=== PATIENT | male | born 1945 | race Caucasian/White ===

== ENCOUNTER → 2017-12-07 08:08 | Outpatient (CLI) | payer MEDICARE, OTHER, SELFPAY ==
--- NOTE | 2017-12-07 | DI.MRI.S_ITS ---
PROCEDURE: MR HEAD/BRAIN WO/W CON INDICATIONS: Atypical Headache with visual symptoms TECHNIQUE: Noncontrast axial T1 spin echo, axial T2 fast spin echo, sagittal and axial FLAIR, coronal T2 fast spin echo, axial gradient echo, axial diffusion and ADC through the brain. After the administration of contrast, axial and coronal T1 spin echo with fat saturation through the brain. COMPARISON: [facility], CT, HEAD WITHOUT CONTRAST, 07/07/2010, 11:08. [facility], CT, SINUS SCREEN WO CONTRAST, 05/21/2013, 9:49. FINDINGS: Image quality: Excellent. CSF spaces: Basal cisterns are patent. No extra-axial fluid collections. Ventricles are normal in size and shape. Brain: No midline shift. No intracranial bleeds or masses. No abnormal intracranial enhancement. There is cerebral volume loss for age. There is periventricular white matter chronic small vessel ischemic change. The brainstem appears normal. Diffusion-weighted images demonstrate no acute ischemic insults. No chronic ischemic insults. Normal intravascular flow voids are present. Skull and face: Calvarial marrow is normal in signal. Orbits appear normal. Sinuses: There is minimal paranasal sinus disease. No abnormal fluid is seen within the mastoid air cells or within the middle ear cavities. IMPRESSION: No masses or abnormal enhancement can be seen. No findings of acute or subacute infarction can be seen. Note is made of age-appropriate brain parenchymal volume loss and chronic small vessel ischemic changes. Dictated by: Devang Angela M.D. on 12/07/2017 at 8:40 Approved by: Devang Angela M.D. on 12/07/2017 at 8:42
== END ==
PROVIDERS: Family Provider Family Medicine Geriatric Medicine; PCP Family Medicine Geriatric Medicine; Visit Provider Family Medicine Geriatric Medicine
DX: R51 Headache (principal); H53.9 Unspecified visual disturbance
CPT/HCPCS: 70553

== ENCOUNTER → 2019-02-21 09:41 | Outpatient (CLI) | payer MEDICARE, OTHER, SELFPAY ==
--- NOTE | 2019-02-21 09:56 | DI.CT.S_ITS ---
PROCEDURE: CT CHEST WO CON INDICATIONS: Hemoptysis TECHNIQUE: Noncontrast 5 mm thick sections acquired from the pulmonary apices to the posterior costophrenic angles. 1 mm lung window, 5 mm thick coronal and sagittal and 7 mm axial MIP reformats were then acquired. For radiation dose reduction, the following was used: automated exposure control, adjustment of mA and/or kV according to patient size. COMPARISON: None. FINDINGS: Image quality: Excellent. Lungs and pleura: No acute consolidation. Diffuse bilateral upper lobe scarring and atelectasis. 2.1 x 1.6 cm anterior right upper lobe nodule on image 86 series 3. Diffuse central airway thickening. No pleural effusion or pneumothorax. Mediastinum: Heart size is normal. Coronary artery calcifications are present. No pericardial effusion. Right hilar lymphadenopathy with confluent appearance measuring approximately 4.5 x 2.6 cm on axial image 25. There is associated narrowing of the right upper lobe airways, for example image 25 series 2. Thoracic aorta and central pulmonary arteries are normal in size. Esophagus is normal in caliber. No hiatal hernia. Bones and chest wall: No suspicious bony lesions. No vertebral body compression fractures. Multilevel spondylosis. No axillary or supraclavicular adenopathy by size criteria. Thyroid gland is unremarkable. Abdomen: Visualized upper abdominal solid organs and bowel loops appear normal in the absence of contrast. IMPRESSION: Anterior right upper lobe pulmonary nodule, and associated right hilar lymphadenopathy. Associated narrowing of the right upper lobe airways, which is worrisome for intraluminal tumor invasion. Findings are most suspicious for bronchogenic malignancy and right hilar lymph node metastatic disease. Findings and recommendations were personally telephoned and discussed with Dr. Yousif at 1150 hours 02/21/19 Dictated by: Mc Gutierrez M.D. on 02/21/2019 at 11:12 Approved by: Mc Gutierrez M.D. on 02/21/2019 at 11:55
== END ==
PROVIDERS: PCP Family Medicine Geriatric Medicine; Visit Provider Family Medicine Geriatric Medicine
DX: R04.2 Hemoptysis (principal); R91.1 Solitary pulmonary nodule; R59.0 Localized enlarged lymph nodes; I25.10 Atherosclerotic heart disease of native coronary artery without angina pectoris
CPT/HCPCS: 71250

== ENCOUNTER 2020-06-20 13:28 | Emergency (ER) | payer MEDICARE, OTHER, SELFPAY ==
[2020-06-20 13:37] VITALS: PULSE 130; O2SAT 97
[2020-06-20 13:41] VITALS: BP 129/85; PULSE 124; RESP 16; O2SAT 99
[2020-06-20] MEDS: SODIUM CHLORIDE 0.9% 1,000 ML 1000 ML IV (13:49)
[2020-06-20] MEDS: ONDANSETRON 4 MG/2 ML INJ IV (13:49)
--- NOTE | 2020-06-20 13:54 | ED_ITS ---
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 He states that this can happen after his treatments. He sees Dr. Langford with [facility]. He states that he is having 50-60 episodes of diarrhea per day, having to have stools every 20 minutes or so. He states that this point is just water. He has not urinated in 4 days or so. He states this time he has some nausea associated. He denies any fevers muscle aches or chills. He states that he believes that this is normal for him after his treatments, and that he would like to be on the [place] home in just over an hour. Related Data Allergies Allergy/AdvReac Type Severity Reaction Status Date / Time No Known Drug Allergies Allergy Verified 06/20/20 14:06 Review of Systems <MLEIDA Sweet - Last Filed: 06/20/20 15:51> Review of Systems Narrative: GENERAL: Denies chills, fatigue, malaise, fever, sweats. HEENT: Denies sinus pain, ear pain, sore throat, difficulty swallowing, dizziness. RESPIRATORY: Denies dyspnea, cough, wheezing, hemoptysis, sputum. CARDIOVASCULAR: Denies chest pain, palpitations, orthopnea, edema, GASTROINTESTINAL: See HPI : Denies dysuria, frequency, incontinence, hematuria, urinary retention. MUSCULOSKELETAL: denies weakness, joint pain, or bony pain SKIN: Denies rash, skin lesions, or other NEUROLOGIC: Denies weakness, headache, numbness, change in speech, confusion, seizures, incoordination. PSYCHIATRIC: No concerning psychosocial issues. 12 point review of systems is negative except for those stated above Patient History <MELIDA Sweet - Last Filed: 06/20/20 15:51> Social History Smoking Status: Former smoker Exam <MACY SweetMONCHO - Last Filed: 06/20/20 15:51> Narrative Exam Narrative: GENERAL: This is a well-nourished, well-developed patient, lying on stretcher HEAD: Atraumatic. Normocephalic. No temporal or scalp tenderness. EYES: Pupils equal round and reactive. Extraocular motions intact. No scleral icterus. No injection or drainage. ENT: Nose without bleeding, purulent drainage or septal hematoma. Throat without erythema, tonsillar hypertrophy or exudate. Uvula midline. Airway patent. Dry mucous membranes noted. NECK: Trachea midline. No JVD or lymphadenopathy. Supple, nontender, no meningeal signs. CARDIOVASCULAR: Regular rate and rhythm RESPIRATORY: Clear to auscultation. Breath sounds equal bilaterally. No wheezes, rales, or rhonchi. No cough. No increased respiratory effort. No accessory muscle use GASTROINTESTINAL: Abdomen soft, non-tender, nondistended. No hepato- splenomegaly, or palpable masses. No guarding. EXTREMITIES: No clubbing, cyanosis, or edema. No joint tenderness, effusion, or edema noted. BACK: Nontender without deformity or crepitance. No flank tenderness. NEURO: AOx3. SKIN: No rash or erythema on visible skin Initial Vital Signs Initial Vital Signs: Vital Signs Pulse Rate 130 H 06/20/20 13:37 Pulse Oximetry 97 06/20/20 13:37 <Emma Casper DO - Last Filed: 06/20/20 17:09> Initial Vital Signs Initial Vital Signs: Vital Signs Pulse Rate 130 H 06/20/20 13:37 Pulse Oximetry 97 06/20/20 13:37 Scores <SUNNI Sweet - Last Filed: 06/20/20 15:51> GCS Ashia coma scale eye opening: Spontaneous Ashia coma scale verbal response: Orientated [place] coma scale motor response: Obey commands Ashia coma scale total score: 15 Course <SUNNI Sweet - Last Filed: 06/20/20 15:51> Orders Ordered: ED Orders 06/20/20 13:50 Complete Blood Count AUTO DIFF Stat Comprehensive Metabolic Panel Stat Lactate (Lactic Acid) Stat Lipase Stat Magnesium Stat 06/20/20 14:55 Ictotest Urine Stat Urinalysis and Microscopic Stat Discontinued Medications Sodium Chloride (Normal Saline 0.9%) 1,000 mls @ 1,000 mls/hr IV BOLUS ONE Stop: 06/20/20 14:43 Last Infusion: 06/20/20 15:07 Dose: 0 mls/hr Documented by: Admin: 06/20/20 13:49 Dose: 1,000 mls/hr Documented by: MARGARET Sodium Chloride (Normal Saline 0.9%) 1,000 mls @ 1,000 mls/hr IV BOLUS ONE Stop: 06/20/20 15:00 Last Admin: 06/20/20 15:07 Dose: Not Given Documented by: JAYLIN Ondansetron HCl (Ondansetron 4 Mg/2 Ml Inj) 4 mg IV NOW ONE Stop: 06/20/20 13:45 Last Admin: 06/20/20 13:49 Dose: 4 mg Documented by: MARGARET Vital Signs Vital signs: Vital Signs - 8 hr 06/20/20 13:37 06/20/20 13:41 06/20/20 14:00 Temperature Pulse Rate 130 H 124 H 116 H Respiratory Rate 16 37 H Blood Pressure 129/85 137/87 Pulse Oximetry 97 99 96 06/20/20 14:06 06/20/20 14:30 Temperature 97.7 F Pulse Rate 121 H 107 H Respiratory Rate 31 H 19 Blood Pressure 129/85 126/75 Pulse Oximetry 97 97 <Emma Casper DO - Last Filed: 06/20/20 17:09> Orders Ordered: ED Orders 06/20/20 13:50 Complete Blood Count AUTO DIFF Stat Comprehensive Metabolic Panel Stat Lactate (Lactic Acid) Stat Lipase Stat Magnesium Stat 06/20/20 14:55 Ictotest Urine Stat Urinalysis and Microscopic Stat Discontinued Medications Sodium Chloride (Normal Saline 0.9%) 1,000 mls @ 1,000 mls/hr IV BOLUS ONE Stop: 06/20/20 14:43 Last Infusion: 06/20/20 15:07 Dose: 0 mls/hr Documented by: Admin: 06/20/20 13:49 Dose: 1,000 mls/hr Documented by: MARGARET Sodium Chloride (Normal Saline 0.9%) 1,000 mls @ 1,000 mls/hr IV BOLUS ONE Stop: 06/20/20 15:00 Last Admin: 06/20/20 15:07 Dose: Not Given Documented by: JAYLIN Ondansetron HCl (Ondansetron 4 Mg/2 Ml Inj) 4 mg IV NOW ONE Stop: 06/20/20 13:45 Last Admin: 06/20/20 13:49 Dose: 4 mg Documented by: MARGARET Vital Signs Vital signs: Vital Signs - 8 hr 06/20/20 13:37 06/20/20 13:41 06/20/20 14:00 Temperature Pulse Rate 130 H 124 H 116 H Respiratory Rate 16 37 H Blood Pressure 129/85 137/87 Pulse Oximetry 97 99 96 06/20/20 14:06 06/20/20 14:30 Temperature 97.7 F Pulse Rate 121 H 107 H Respiratory Rate 31 H 19 Blood Pressure 129/85 126/75 Pulse Oximetry 97 97 MDM - Abdominal Pain <MACY Sweet- - Last Filed: 06/20/20 15:51> Lab Data Attestation: I reviewed the patient's lab results. Result diagrams: 06/20/20 13:50 06/20/20 13:50 Labs: Lab Results 06/20/20 06/20/20 06/20/20 Range/Units 13:50 13:50 13:50 WBC 13.6 H (4.5-11.0) X10^3/uL RBC 4.69 (4.5-5.9) X10^6/uL Hgb 15.3 (13.5-17.5) g/dL Hct 45.0 (41-53) % MCV 95.8 (80-100) fL MCH 32.6 (26-34) PG MCHC 34.0 (30-36) % RDW 14.2 (11.6-14.8) % Plt Count 294 (150-400) X10^3/uL Neut % (Auto) Not Reportable Lymph % (Auto) Not Reportable Snyder % (Auto) Not Reportable Eos % (Auto) Not Reportable Baso % (Auto) Not Reportable Lymph # (Auto) Not Reportable Snyder # (Auto) Not Reportable Baso # (Auto) Not Reportable Total Counted 100 Seg Neutrophils % 65.0 (38-70) % Band Neutrophils % 1.0 L (3-7) % Lymphocytes % (Manual) 15.0 L (25-45) % Monocytes % (Manual) 11.0 (2-11) % Basophils % (Manual) 2.0 H (0-1) % Metamyelocytes % 1.0 H (-0) % Myelocytes % 5.0 H (-0) % Neutrophils # (Manual) 8976 H (5856-1879) /uL RBC Morphology See below Anisocytosis 1+ H Sodium 132 L (137-145) mmol/L Potassium 2.7 L* (3.4-5.1) mmol/L Chloride 90 L (98-107) mmol/L Carbon Dioxide 21 L (22-32) mmol/L BUN 46 H (9-20) mg/dL Creatinine 2.96 H (0.66-1.25) mg/dL Estimated GFR 20.8 L (>60) mL/min BUN/Creatinine Ratio 15.5 (6-22) Glucose 202 H (80-110) mg/dL Lactate 3.5 H (0.7-2.1) mmol/L Calcium 10.3 H (8.4-10.2) mg/dL Magnesium 1.7 (1.6-2.3) mg/dL Total Bilirubin 0.5 (0.2-1.3) mg/dL AST 31 (17-59) IU/L ALT 21 (<50) IU/L Alkaline Phosphatase 115 (38-126) U/L Total Protein 8.1 (6.3-8.2) g/dL Albumin 4.7 (3.5-5.0) g/dL Globulin 3.4 (1.7-4.1) g/dL Albumin/Globulin Ratio 1.4 (1.0-2.8) Lipase 208 (23-300) U/L Urine Color Urine Appearance Urine pH (4.5-8.0) Ur Specific [place] (1.000-1.035) Urine Protein (Negative) Urine Glucose (UA) (Negative) g/dL Urine Ketones (NEGATIVE) Urine Occult Blood (Negative) Urine Nitrate (Negative) Urine Bilirubin (NEGATIVE) Ur Bilirubin Confirm (Negative) Urine Urobilinogen (0.2) E.U./dL Ur Leukocyte Esterase (NEGATIVE) Urine RBC (0-5/HPF) Urine WBC (0-5/HPF) Ur Squamous Epith Cells (0-5/HPF) Amorphous Sediment Urine Bacteria (None) Hyaline Casts (None) Ur Culture Indicated? 03/06/21 Range/Units 14:55 WBC (4.5-11.0) X10^3/uL RBC (4.5-5.9) X10^6/uL Hgb (13.5-17.5) g/dL Hct (41-53) % MCV (80-100) fL MCH (26-34) PG MCHC (30-36) % RDW (11.6-14.8) % Plt Count (150-400) X10^3/uL Neut % (Auto) Lymph % (Auto) Snyder % (Auto) Eos % (Auto) Baso % (Auto) Lymph # (Auto) Snyder # (Auto) Baso # (Auto) Total Counted Seg Neutrophils % (38-70) % Band Neutrophils % (3-7) % Lymphocytes % (Manual) (25-45) % Monocytes % (Manual) (2-11) % Basophils % (Manual) (0-1) % Metamyelocytes % (-0) % Myelocytes % (-0) % Neutrophils # (Manual) (8931-7096) /uL RBC Morphology Anisocytosis Sodium (137-145) mmol/L Potassium (3.4-5.1) mmol/L Chloride (98-107) mmol/L Carbon Dioxide (22-32) mmol/L BUN (9-20) mg/dL Creatinine (0.66-1.25) mg/dL Estimated GFR (>60) mL/min BUN/Creatinine Ratio (6-22) Glucose (80-110) mg/dL Lactate (0.7-2.1) mmol/L Calcium (8.4-10.2) mg/dL Magnesium (1.6-2.3) mg/dL Total Bilirubin (0.2-1.3) mg/dL AST (17-59) IU/L ALT (<50) IU/L Alkaline Phosphatase (38-126) U/L Total Protein (6.3-8.2) g/dL Albumin (3.5-5.0) g/dL Globulin (1.7-4.1) g/dL Albumin/Globulin Ratio (1.0-2.8) Lipase (23-300) U/L Urine Color Yellow Urine Appearance Clear Urine pH 5.0 (4.5-8.0) Ur Specific [place] 1.025 (1.000-1.035) Urine Protein 2+ H (Negative) Urine Glucose (UA) Negative (Negative) g/dL Urine Ketones Negative (NEGATIVE) Urine Occult Blood 3+ H (Negative) Urine Nitrate Negative (Negative) Urine Bilirubin 1+ H (NEGATIVE) Ur Bilirubin Confirm Negative (Negative) Urine Urobilinogen 0.2 (0.2) E.U./dL Ur Leukocyte Esterase Negative (NEGATIVE) Urine RBC 1-5/hpf (0-5/HPF) Urine WBC None seen (0-5/HPF) Ur Squamous Epith Cells 5-10 /hpf H (0-5/HPF) Amorphous Sediment 3+ Urine Bacteria None seen (None) Hyaline Casts 5-10/lpf (None) Ur Culture Indicated? Cult not indicated MDM Narrative Medical decision making narrative: The patient is a 74-year-old male with history of CA who presents with a chief complaint of dehydration. Basic lab work was drawn to evaluate renal function, electrolyte status etcetera. The patient was signed be profoundly dehydrated, tachycardic on arrival. It was noted that his lactate was 3.5, current and was almost 3 and potassium was 2.7. Thus I attempted to discuss with the patient and his the possibility of admission. However the patient was adamant to leave the hospital immediately to get a 3:00 p.m. [place] back home. I did discuss at length that I believed that he should be admitted, hydrated, electrolytes replaced. I offered to speak with this hematology oncology group to see if they endorse hospitalization, but the patient states he would not stay even if they did. I discussed at length with the patient risk of arrhythmia, risk of kidney failure, risk of . These conversations were had with his and JORGE L White at bedside. Patient states that he wants to leave regardless of these concerns. Dr Casper also in to discussed with patient risks of leaving, encouraged him to stay. However patient wanted to leave the hospital regardless of his risk of kidney failure, arrhythmia, . The patient is GCS 15 and competent to make medical decisions Against medical advice form signed. Reiterated with the patient and his that he is welcome to come back at any point for further treatment and evaluations. <Emma Casper, DO - Last Filed: 06/20/20 17:09> Lab Data Labs: Lab Results 03/06/21 03/06/21 03/06/21 Range/Units 13:50 13:50 13:50 WBC 13.6 H (4.5-11.0) X10^3/uL RBC 4.69 (4.5-5.9) X10^6/uL Hgb 15.3 (13.5-17.5) g/dL Hct 45.0 (41-53) % MCV 95.8 (80-100) fL MCH 32.6 (26-34) PG MCHC 34.0 (30-36) % RDW 14.2 (11.6-14.8) % Plt Count 294 (150-400) X10^3/uL Neut % (Auto) Not Reportable Lymph % (Auto) Not Reportable Snyder % (Auto) Not Reportable Eos % (Auto) Not Reportable Baso % (Auto) Not Reportable Lymph # (Auto) Not Reportable Snyder # (Auto) Not Reportable Baso # (Auto) Not Reportable Total Counted 100 Seg Neutrophils % 65.0 (38-70) % Band Neutrophils % 1.0 L (3-7) % Lymphocytes % (Manual) 15.0 L (25-45) % Monocytes % (Manual) 11.0 (2-11) % Basophils % (Manual) 2.0 H (0-1) % Metamyelocytes % 1.0 H (-0) % Myelocytes % 5.0 H (-0) % Neutrophils # (Manual) 8976 H (4056-3791) /uL RBC Morphology See below Anisocytosis 1+ H Sodium 132 L (137-145) mmol/L Potassium 2.7 L* (3.4-5.1) mmol/L Chloride 90 L (98-107) mmol/L Carbon Dioxide 21 L (22-32) mmol/L BUN 46 H (9-20) mg/dL Creatinine 2.96 H (0.66-1.25) mg/dL Estimated GFR 20.8 L (>60) mL/min BUN/Creatinine Ratio 15.5 (6-22) Glucose 202 H (80-110) mg/dL Lactate 3.5 H (0.7-2.1) mmol/L Calcium 10.3 H (8.4-10.2) mg/dL Magnesium 1.7 (1.6-2.3) mg/dL Total Bilirubin 0.5 (0.2-1.3) mg/dL AST 31 (17-59) IU/L ALT 21 (<50) IU/L Alkaline Phosphatase 115 (38-126) U/L Total Protein 8.1 (6.3-8.2) g/dL Albumin 4.7 (3.5-5.0) g/dL Globulin 3.4 (1.7-4.1) g/dL Albumin/Globulin Ratio 1.4 (1.0-2.8) Lipase 208 (23-300) U/L Urine Color Urine Appearance Urine pH (4.5-8.0) Ur Specific [place] (1.000-1.035) Urine Protein (Negative) Urine Glucose (UA) (Negative) g/dL Urine Ketones (NEGATIVE) Urine Occult Blood (Negative) Urine Nitrate (Negative) Urine Bilirubin (NEGATIVE) Ur Bilirubin Confirm (Negative) Urine Urobilinogen (0.2) E.U./dL Ur Leukocyte Esterase (NEGATIVE) Urine RBC (0-5/HPF) Urine WBC (0-5/HPF) Ur Squamous Epith Cells (0-5/HPF) Amorphous Sediment Urine Bacteria (None) Hyaline Casts (None) Ur Culture Indicated? 06/20/20 Range/Units 14:55 WBC (4.5-11.0) X10^3/uL RBC (4.5-5.9) X10^6/uL Hgb (13.5-17.5) g/dL Hct (41-53) % MCV (80-100) fL MCH (26-34) PG MCHC (30-36) % RDW (11.6-14.8) % Plt Count (150-400) X10^3/uL Neut % (Auto) Lymph % (Auto) Snyder % (Auto) Eos % (Auto) Baso % (Auto) Lymph # (Auto) Snyder # (Auto) Baso # (Auto) Total Counted Seg Neutrophils % (38-70) % Band Neutrophils % (3-7) % Lymphocytes % (Manual) (25-45) % Monocytes % (Manual) (2-11) % Basophils % (Manual) (0-1) % Metamyelocytes % (-0) % Myelocytes % (-0) % Neutrophils # (Manual) (9315-1737) /uL RBC Morphology Anisocytosis Sodium (137-145) mmol/L Potassium (3.4-5.1) mmol/L Chloride (98-107) mmol/L Carbon Dioxide (22-32) mmol/L BUN (9-20) mg/dL Creatinine (0.66-1.25) mg/dL Estimated GFR (>60) mL/min BUN/Creatinine Ratio (6-22) Glucose (80-110) mg/dL Lactate (0.7-2.1) mmol/L Calcium (8.4-10.2) mg/dL Magnesium (1.6-2.3) mg/dL Total Bilirubin (0.2-1.3) mg/dL AST (17-59) IU/L ALT (<50) IU/L Alkaline Phosphatase (38-126) U/L Total Protein (6.3-8.2) g/dL Albumin (3.5-5.0) g/dL Globulin (1.7-4.1) g/dL Albumin/Globulin Ratio (1.0-2.8) Lipase (23-300) U/L Urine Color Yellow Urine Appearance Clear Urine pH 5.0 (4.5-8.0) Ur Specific [place] 1.025 (1.000-1.035) Urine Protein 2+ H (Negative) Urine Glucose (UA) Negative (Negative) g/dL Urine Ketones Negative (NEGATIVE) Urine Occult Blood 3+ H (Negative) Urine Nitrate Negative (Negative) Urine Bilirubin 1+ H (NEGATIVE) Ur Bilirubin Confirm Negative (Negative) Urine Urobilinogen 0.2 (0.2) E.U./dL Ur Leukocyte Esterase Negative (NEGATIVE) Urine RBC 1-5/hpf (0-5/HPF) Urine WBC None seen (0-5/HPF) Ur Squamous Epith Cells 5-10 /hpf H (0-5/HPF) Amorphous Sediment 3+ Urine Bacteria None seen (None) Hyaline Casts 5-10/lpf (None) Ur Culture Indicated? Cult not indicated Discharge Plan Departure Patient Disposition: Left Against Medical Advice Clinical Impression: Acute dehydration, Creatinine elevation, Hypokalemia Diarrhea Qualifiers: Diarrhea type: unspecified type Qualified Code(s): R19.7 - Diarrhea, unspecified Referrals: Naseem Scott MD [Primary Care Provider] - Stand Alone Forms: Against Medical Advice <Emma Casper DO - Last Filed: 06/20/20 17:09> Cosign ED Attending Cosignature Attestation: I became aware that patient was going to leave against medical advice. He has had multiple episodes of diarrhea found to have be hypokalemic acute kidney injury and elevated lactic acid. I have discussed patient what we could do was to make him stay in the hospital and this time there was nothing. His has been pushing fluids as best she can in he is drinking them but does not seem to be drinking enough. I have discussed with him that electrolyte abnormalities can cause fatal cardiac arrhythmias. He is extremely concerned about making his [place] boat, and his dog also has diarrhea. We unfortunately were unable to get a stool sample because he refused to give 1. was also in room for this conversation she is not able to convince him to stay either. The patient is clinically sober, free from distracting injury, appears to have intact insight, judgment and reason. Does not meet criteria for involuntary hospitalization. Patient has the capacity to make decisions. I was immediately available in the department for consultation. Documentation has been reviewed. I agree with assessment and plan.
[2020-06-20 14:00] VITALS: BP 137/87; PULSE 116; RESP 37; O2SAT 96
[2020-06-20 14:06] VITALS: BP 129/85; PULSE 121; RESP 31; TEMP 36.5; O2SAT 97; BMI 27.2
[2020-06-20 14:13] LABS: Hemoglobin 15.3 g/dL (13.5-17.5); Mean Corpuscular Hemoglobin 32.6 PG (26-34); Mean Corpuscular Volume 95.8 fL (80-100); Platelet Count 294 X10^3/uL (150-400); Red Blood Cell Count 4.69 X10^6/uL (4.5-5.9); Red Cell Distribution Width 14.2 % (11.6-14.8); White Blood Cell Count 13.6 X10^3/uL (4.5-11.0)
[2020-06-20 14:15] LABS: Add Manual Diff / Slide Review YES
[2020-06-20 14:24] LABS: Lactate (Lactic Acid) 3.5 mmol/L (0.7-2.1)
[2020-06-20 14:25] LABS: Alanine Aminotransferase 21 IU/L (<50); Albumin 4.7 g/dL (3.5-5.0); Albumin Globulin Ratio 1.4 (1.0-2.8); Alkaline Phosphatase 115 U/L (38-126); Aspartate Aminotransferase 31 IU/L (17-59); BUN Creatinine Ratio 15.5 (6-22); Bilirubin Total 0.5 mg/dL (0.2-1.3); Blood Urea Nitrogen 46 mg/dL (9-20); Calcium 10.3 mg/dL (8.4-10.2); Carbon Dioxide 21 mmol/L (22-32); Chloride 90 mmol/L (98-107); Estimated Glomerular Filt Rate 20.8 mL/min (>60); Globulin 3.4 g/dL (1.7-4.1); Glucose 202 mg/dL (80-110); HEMOLYSIS < 15 (0-50); Lipase 208 U/L (23-300); Magnesium 1.7 mg/dL (1.6-2.3); Sodium 132 mmol/L (137-145); Total Protein 8.1 g/dL (6.3-8.2)
[2020-06-20 14:30] VITALS: BP 126/75; PULSE 107; RESP 19; O2SAT 97
[2020-06-20 14:50] LABS: Potassium 2.7 mmol/L (3.4-5.1)
--- NOTE | 2020-06-20 15:07 | PC.NURSE ---
Pt refused remainder of care. Said he had to get home. Dr Casper and Barbara Madera both discussed risks with patient and including the risk of if leaving without treatment. Pt signed paperwork for AMA, witnessed by this RN, and Barbara Madera [employer].
[2020-06-20 15:10] LABS: Anisocytosis 1+; Neutrophils Absolute Manual 8976 /uL (3000-5900); Total Cells Counted 100
[2020-06-20 15:38] LABS: Bacteria Urine None Seen; WBC Urine None Seen (0-5/HPF)
[2020-06-20 15:39] LABS: Appearance Urine UA CLEAR; Bilirubin Urine UA 1+ (NEGATIVE); Color Urine UA YELLOW; Glucose Urine UA NEGATIVE (Negative); Ketones Urine UA NEGATIVE (NEGATIVE); Leukocyte Esterase Urine UA NEGATIVE (NEGATIVE); Nitrite Urine UA NEGATIVE (Negative); Occult Blood Urine UA 3+ (Negative); Protein Urine UA 2+ (Negative); Specific Gravity Urine UA 1.025 (1.000-1.035); Urobilinogen Urine UA 0.2 E.U./dL (0.2)
[2020-06-20 15:52] LABS: Amorphous Sediment Urine 3+; Ictotest Urine Negative (Negative); RBC Urine 1-5/HPF (0-5/HPF); Squamous Epithelial Cell Urine 5-10 /HPF (0-5/HPF)
[2020-06-20 15:53] LABS: Culture Indicated Urine Cult Not Indicated; Hyaline Casts Urine 5-10/LPF
[2020-06-20 16:06] LABS: Reflexed Lactate in 2 Hours Y
== END 2020-06-20 15:00 | disposition left against medical advice (07) ==
PROVIDERS: Emergency Provider Nurse Practitioner Family; PCP Family Medicine
DX: E86.0 Dehydration (principal); E87.6 Hypokalemia; R79.89 Other specified abnormal findings of blood chemistry; R19.7 Diarrhea, unspecified; R11.0 Nausea
CPT/HCPCS: 36415; 80053; 81001; 83605; 83690; 83735; 85007; 85025; 96361; 96374; 99281; 99284; J1642; J2405